=== PATIENT | male | born 2000 | race Caucasian/White ===

== ENCOUNTER 2018-04-22 10:01 | Emergency (ER) | payer BC ==
[2018-04-22] MEDS: IBUPROFEN 800 MG TAB PO (10:43)
== END 2018-04-22 11:27 | disposition home or self-care (01) ==
LOC: FTE 10:01
DX: S99.911A Unspecified injury of right ankle, initial encounter (principal); X58.XXXA Exposure to other specified factors, initial encounter; Y92.9 Unspecified place or not applicable
CPT/HCPCS: 73610; 73610-RT; 99283-25

== ENCOUNTER 2018-07-08 23:06 | Emergency (ER) | payer BC ==
[2018-07-09] MEDS: IBUPROFEN 600 MG TAB PO (00:10)
== END 2018-07-09 01:44 | disposition home or self-care (01) ==
LOC: FTE 07-09 01:44
DX: S89.91XA Unspecified injury of right lower leg, initial encounter (principal); W18.39XA Other fall on same level, initial encounter; Y92.310 Basketball court as the place of occurrence of the external cause
CPT/HCPCS: 29505; 73564; 99283-25